=== PATIENT | female | born 1990 | race Caucasian/White ===

== ENCOUNTER 2020-05-10 08:35 | Emergency (ER) | payer MEDICAID, SELFPAY ==
[~2020-05-10] VITALS: Ht 170.2 cm; Wt 78.0 kg
[~2020-05-10 08:35] MED LIST: CETI10SG1 PO; MAGNESIUM; PNV91TAB8 PO; VITAMIN D; VITAMIN K
[2020-05-10 08:43] VITALS: BP 111/73
--- NOTE | 2020-05-10 08:50 | NUR ---
C/O COUGH, SOB X 2 DAYS. 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 28 WEEKS. DENIES ABDOMINAL PAIN OR N/V. PT HAD COVID TESTED 05/02/20 : NEGATIVE. TEMP 98.3,P 102, RR 22, BP 111/73,O2 SAT 100% AT THIS TIME. PMH: DENIES
--- NOTE | 2020-05-10 08:50 | NUR ---
TENT 1.
--- NOTE | 2020-05-10 09:41 | NUR ---
COVID [place] SWAB COLLECTED.
[2020-05-10 11:30] VITALS: BP 111/73
--- NOTE | 2020-05-10 11:30 | NUR ---
Patient discharged with v/s stable. Written and verbal after care instructions given and explained. Patient verbalized understanding. Ambulatory with steady gait. All questions addressed prior to discharge. Advised to follow up with PMD.
== END 2020-05-10 11:30 | disposition home or self-care (01) ==
LOC: MED 08:35
DX: U07.1 COVID-19 (principal); Z79.899 Other long term (current) drug therapy
CPT/HCPCS: 99283

== ENCOUNTER 2020-06-03 18:37 | Observation (INO) | payer MEDICAID, SELFPAY ==
[2020-06-03 19:28] VITALS: BP 107/65
[2020-06-03] MEDS ORDERED: BETAMETH ACET/BETAMETH NA PH 30 MG/5 ML VIAL IM SCH (19:40)
[2020-06-03] MEDS ORDERED: LACTATED RINGERS 1,000 ML IV SCH (19:40)
[2020-06-03 20:18] LABS: BASOPHILS % (AUTO) 0.2 % (0.0-2.0); EOSINOPHILS # (AUTO) 0.1 K/uL (0-0.4); EOSINOPHILS % (AUTO) 1.5 % (0.0-4.0); HEMATOCRIT 32.8 % (36-48); HEMOGLOBIN 11.3 g/dL (12.0-16.0); LYMPHOCYTES % (AUTO) 23.1 % (20.5-51.1); MEAN CORPUSCULAR HEMOGLOBIN 33 pg (27-31); MEAN CORPUSCULAR HGB CONC 34 g/dL (33-37); MONOCYTES # (AUTO) 0.6 K/uL (0.8-1.0); MONOCYTES % (AUTO) 7.4 % (1.7-9.3); NEUTROPHILS # (AUTO) 5.8 K/uL (1.8-7.7); NEUTROPHILS % (AUTO) 67.8 % (42.2-75.2); PLATELET COUNT (AUTO) 194 K/uL (140-450); RED BLOOD CELL COUNT(AUTO) 3.38 MIL/uL (4.20-5.40); RED CELL DISTRIBUTION WIDTH 13.1 % (11.6-13.7); WHITE BLOOD COUNT (AUTO) 8.5 K/uL (4.8-10.8)
[2020-06-03 20:19] LABS: APPEARANCE,URINE CLEAR (CLEAR); BILIRUBIN,URINE NEGATIVE (NEGATIVE); BLOOD, URINE NEGATIVE (NEGATIVE); COLOR,URINE YELLOW (YELLOW); LEUKOCYTE ESTERASE ,URINE NEGATIVE (NEGATIVE); NITRITE, URINE NEGATIVE (NEGATIVE); UGLUCOSE NEGATIVE (NEGATIVE)
[2020-06-03 20:31] LABS: ALBUMIN 2.6 g/dL (3.4-5.0); CARBON DIOXIDE 24.4 mmol/L (21-32); CREATININE 0.5 mg/dL (0.6-1.3); POTASSIUM 3.4 mmol/L (3.5-5.1); TOTAL BILIRUBIN 0.2 mg/dL (0.0-1.0)
== END 2020-06-03 22:35 | disposition home or self-care (01) ==
LOC: MLD 18:37
PROVIDERS: ADMIT Obstetrics & Gynecology; ATTEND Obstetrics & Gynecology
DX: O62.9 Abnormality of forces of labor, unspecified (principal); Z3A.31 31 weeks gestation of pregnancy
CPT/HCPCS: 36415; 76805; 76817; 80053; 81003; 82731; 85025; 96360; 96361; G0378; J7120